=== PATIENT | female | born 1965 | race Caucasian/White ===

== ENCOUNTER → 2017-03-16 | Outpatient (CLI) | payer BC ==
--- NOTE | 2017-03-19 10:29 | MM ---
Reason for exam: screening (asymptomatic). Last mammogram was performed 7 years and 9 months ago. History: Patient is postmenopausal. Physical Findings: A clinical breast exam by your physician is recommended on an annual basis and results should be correlated with mammographic findings. MG Screening Mammo w CAD Bilateral CC and MLO view(s) were taken. Prior study comparison: June 16, 2009, mammogram, performed at [facility]. June 01, 2009, mammogram, performed at [facility]. There are scattered fibroglandular densities. There is no discrete abnormality. No significant changes when compared with prior studies. ASSESSMENT: Negative, BI-RAD 1 RECOMMENDATION: Routine screening mammogram of both breasts in 1 year.
== END | disposition home or self-care (01) ==
LOC: RADMAMWWP 16:07
PROVIDERS: ATTEND Family Medicine
DX: Z12.31 Encounter for screening mammogram for malignant neoplasm of breast (principal)

== ENCOUNTER → 2018-04-01 | Outpatient (CLI) | payer BC ==
--- NOTE | 2018-04-03 10:25 | MM ---
Reason for exam: screening (asymptomatic). Last mammogram was performed 1 year and 1 month ago. History: Patient is postmenopausal. Physical Findings: A clinical breast exam by your physician is recommended on an annual basis and results should be correlated with mammographic findings. MG Screening Mammo w CAD Bilateral CC and MLO view(s) were taken. Prior study comparison: March 16, 2017, bilateral MG screening mammo w CAD. [place], [place] [facility] [place] are scattered fibroglandular densities. No significant changes when compared with prior studies. ASSESSMENT: Benign, BI-RAD 2 RECOMMENDATION: Routine screening mammogram of both breasts in 1 year.
== END | disposition home or self-care (01) ==
LOC: RADMAMWWP 14:33
PROVIDERS: ATTEND Family Medicine
DX: Z12.31 Encounter for screening mammogram for malignant neoplasm of breast (principal)
CPT/HCPCS: 77067

== ENCOUNTER → 2019-04-14 | Outpatient (CLI) | payer BC ==
--- NOTE | 2019-04-15 14:28 | MM ---
Reason for exam: screening (asymptomatic). Last mammogram was performed 1 year ago. History: Patient is postmenopausal. Physical Findings: A clinical breast exam by your physician is recommended on an annual basis and results should be correlated with mammographic findings. MG 3D Screening Mammo W/Cad Bilateral CC and MLO view(s) were taken. Prior study comparison: April 01, 2018, bilateral MG screening mammo w CAD. March 16, 2017, bilateral MG screening mammo w CAD. The breast tissue is almost entirely fat. No significant changes when compared with prior studies. ASSESSMENT: Benign, BI-RAD 2 RECOMMENDATION: Routine screening mammogram of both breasts in 1 year.
== END | disposition home or self-care (01) ==
LOC: RADMAMWWP 14:30
PROVIDERS: ATTEND Family Medicine
DX: Z12.31 Encounter for screening mammogram for malignant neoplasm of breast (principal)
CPT/HCPCS: 77063; 77067

== ENCOUNTER → 2021-05-30 | Outpatient (CLI) | payer BC ==
[2021-05-30 15:06] VITALS: BP 120/77; PULSE 66; RESP 18; TEMP 98.4; BMI 27.3
--- NOTE | 2021-05-30 16:08 | P.HPBAR ---
Bariatric H&P - History & Physicial H&P Date: 05/30/21 History & Physicial: Visit/CC: initial visit / lap band Patient initial contact: Initial weight: Initial weight in pounds: Height: 5 ft 5 in Initial BMI: Last weight: Current weight: 74.389 kg Current weight in pounds: 164.00 Current BMI: 27.3 [place] body weight (based on NIH guidelines): 56.699 kg Excess body weight loss: The patient is a 55 year-old F who presents for Bariatric Assessment. Patient presents today for elective just. She is had some issues with GERD. Past Medical History Past Medical History: Hyperlipidemia Additional Past Medical History / Comment(s): hypoglycemia episodes. History of Any Multi-Drug Resistant Organisms: None Reported Past Surgical History: Bariatric Surgery, Cholecystectomy, Orthopedic Surgery Additional Past Surgical History / Comment(s): lap band. carpal tunnel bilat hands. bilateral thumbs trigger release. Past Anesthesia/Blood Transfusion Reactions: No Reported Reaction Past Psychological History: Depression Smoking Status: Current every day smoker Past Alcohol Use History: None Reported Past Drug Use History: None Reported Surgical - Exam Vital Signs Temp Pulse Resp BP 98.4 F 66 18 120/77 05/30/21 14:58 05/30/21 14:58 05/30/21 14:58 05/30/21 14:58 - General well developed, well nourished, no distress - Eyes PERRL - ENT normal pinna - Neck no masses - Respiratory normal expansion - Cardiovascular Rhythm: regular - Abdomen Abdomen: soft, non tender Bariatric Assessment & Plan Plan: GERD. Patient LAP-BAND was just. She had 2 mL her for band. She currently is 0 mL in the band. She'll follow-up in 4 weeks. Bariatric Checklist Checklist: Plan: Checklist: EGD: 1. Hiatal hernia: 2. H. Pylori: HgbA1c: Vitamin D: Smoking: Primary care physician referral: Dr. Neal Rollins ([facility]) Psychiatry clearance: Cardiology clearance: Sleep study: Diet journal: VTE risk score: VTE risk level: Rehab needs at discharge:
== END ==
LOC: BARWHC3 14:01
PROVIDERS: ATTEND Surgery
DX: Z09 Encounter for follow-up examination after completed treatment for conditions other than malignant neoplasm (principal); K21.9 Gastro-esophageal reflux disease without esophagitis; Z98.84 Bariatric surgery status; F32.9 Major depressive disorder, single episode, unspecified; F17.200 Nicotine dependence, unspecified, uncomplicated; Z88.5 Allergy status to narcotic agent
CPT/HCPCS: 99202

== ENCOUNTER 2021-06-23 04:06 | Emergency (ER) | payer BC ==
[2021-06-23 04:11] VITALS: BP 124/63; PULSE 60; RESP 20; TEMP 98.4
[2021-06-23] MEDS ORDERED: DEXAMETHASONE SOD PHOSPHATE 10 MG/ML 1 ML VIAL IM STA (04:26)
[2021-06-23] MEDS ORDERED: HYDROCORTISONE 1% CREAM 30 GM TUBE TOPICAL STA (04:26)
[2021-06-23] MEDS ORDERED: hydrOXYzine HCL 25 MG TAB PO STA (04:26)
--- NOTE | 2021-06-23 04:26 | ED ---
Allergic Reaction HPI - General Chief complaint: Allergic Reaction Stated complaint: Bee Sting Time Seen by Provider: 06/23/21 04:18 Source: patient, RN notes reviewed, old records reviewed Mode of arrival: ambulatory Limitations: no limitations - History of Present Illness Initial Comments: This is a 55-year-old female today for evaluation. Patient does have bee sting which she did witness of right upper extremity. Significant swelling and surrounding erythema has increased as tenderness. Patient states is significantly itchy, but just admits to 1 bee sting. No shortness of breath no feelings of her throat closing no wheezing. No signs of syncope or near syncope. Patient otherwise has no complaints MD Complaint: allergic reaction, other (Bee sting) -: hour(s) Exposure: insect bite Symptoms: itching Severity: moderate Treatment Prior to Arrival: epinephrine Previous Allergy History: none - Related Data Home Medications Medication Instructions Recorded Confirmed Ergocalciferol [Vitamin D2 (1250 1,250 mcg PO WEEKLY 05/30/21 07/04/21 Mcg = 97157 Iu)] Omeprazole [PriLOSEC] 20 mg PO DIRECTED 05/30/21 07/04/21 Rosuvastatin [Crestor] 20 mg PO DAILY 05/30/21 07/04/21 Venlafaxine HCl [Effexor] 20 mg PO DAILY 05/30/21 07/04/21 Previous Rx's Medication Instructions Recorded Famotidine [Pepcid] 40 mg PO BID #28 tablet 06/23/21 hydrOXYzine HCL [Atarax] 25 mg PO TID PRN #15 tab 06/23/21 Allergies Allergy/AdvReac Type Severity Reaction Status Date / Time codeine Allergy Rash/Hives Verified 07/04/21 13:25 Review of Systems ROS Statement: Those systems with pertinent positive or pertinent negative responses have been documented in the HPI. ROS Other: All systems not noted in ROS Statement are negative. Past Medical History Past Medical History: GERD/Reflux, Hyperlipidemia Additional Past Medical History / Comment(s): hypoglycemia episodes. depression History of Any Multi-Drug Resistant Organisms: None Reported Past Surgical History: Bariatric Surgery, Cholecystectomy, Orthopedic Surgery Additional Past Surgical History / Comment(s): lap band. carpal tunnel bilat hands. bilateral thumbs trigger release. Past Anesthesia/Blood Transfusion Reactions: No Reported Reaction Past Psychological History: Depression Smoking Status: Current every day smoker Past Alcohol Use History: Occasional Past Drug Use History: None Reported General Exam - General Exam Comments Initial Comments: Right upper extremity does have bee sting no stinger Limitations: no limitations General appearance: alert, in no apparent distress Head exam: Present: atraumatic, normocephalic, normal inspection Eye exam: Present: normal appearance, PERRL, EOMI. Absent: scleral icterus, conjunctival injection, periorbital swelling ENT exam: Present: normal exam, mucous membranes moist Neck exam: Present: normal inspection. Absent: tenderness, meningismus, lymphadenopathy Respiratory exam: Present: normal lung sounds bilaterally. Absent: respiratory distress, wheezes, rales, rhonchi, stridor Cardiovascular Exam: Present: regular rate, normal rhythm, normal heart sounds. Absent: systolic murmur, diastolic murmur, rubs, gallop, clicks GI/Abdominal exam: Present: soft, normal bowel sounds. Absent: distended, tenderness, guarding, rebound, rigid Extremities exam: Present: normal inspection, full ROM, normal capillary refill. Absent: tenderness, pedal edema, joint swelling, calf tenderness Back exam: Present: normal inspection Neurological exam: Present: alert, oriented X3, CN II-XII intact Psychiatric exam: Present: normal affect, normal mood Skin exam: Present: warm, dry, intact, normal color. Absent: rash Course Vital Signs 06/23/21 04:06 Temperature 98.4 F Pulse Rate 60 Respiratory 20 Rate Blood Pressure 124/63 O2 Sat by Pulse 99 Oximetry - Reevaluation(s) Reevaluation #1: 06/23/21 Medical record is reviewed Symptoms are improved here in the emergency department Patient informed results and questions have been answered Patient is in no distress Medical Decision Making - Medical Decision Making 55 female to the ER today with right arm bee sting. Patient given and itching medication. Patient can be discharged home Disposition Clinical Impression: Allergic reaction, Allergic reaction to insect sting Disposition: HOME SELF-CARE Condition: Good Instructions (If sedation given, give patient instructions): Insect Bite or Sting (ED) Prescriptions: hydrOXYzine HCL [Atarax] 25 mg PO TID PRN #15 tab PRN Reason: Itching Famotidine [Pepcid] 40 mg PO BID #28 tablet Is patient prescribed a controlled substance at d/c from ED?: No Referrals: Stas Rollins MD [REFERRING] - 1-2 days
== END 2021-06-23 04:53 | disposition home or self-care (01) ==
LOC: EC 04:06
DX: T63.441A Toxic effect of venom of bees, accidental (unintentional), initial encounter (principal); E78.5 Hyperlipidemia, unspecified; K21.9 Gastro-esophageal reflux disease without esophagitis; F32.9 Major depressive disorder, single episode, unspecified; F17.200 Nicotine dependence, unspecified, uncomplicated; Z79.899 Other long term (current) drug therapy
CPT/HCPCS: 96372; 99282; J1100

== ENCOUNTER → 2021-07-04 | Outpatient (CLI) | payer BC ==
[2021-07-04 13:30] VITALS: BP 102/69; PULSE 64; RESP 18; TEMP 98.1; BMI 28.5
--- NOTE | 2021-07-04 14:00 | P.HPBAR ---
Bariatric H&P - History & Physicial H&P Date: 07/04/21 History & Physicial: Visit/CC: follow up / lap band Patient initial contact: Initial weight: Initial weight in pounds: Height: 5 ft 5 in Initial BMI: Last weight: Current weight: 77.973 kg Current weight in pounds: 171.90 Current BMI: 28.5 [place] body weight (based on NIH guidelines): 56.699 kg Excess body weight loss: The patient is a 55 year-old F who presents for Bariatric Assessment. Patient presents today for bariatric follow-up. She is requesting a fill of her band. Past Medical History Past Medical History: GERD/Reflux, Hyperlipidemia Additional Past Medical History / Comment(s): hypoglycemia episodes. depression History of Any Multi-Drug Resistant Organisms: None Reported Past Surgical History: Bariatric Surgery, Cholecystectomy, Orthopedic Surgery Additional Past Surgical History / Comment(s): lap band. carpal tunnel bilat hands. bilateral thumbs trigger release. Past Anesthesia/Blood Transfusion Reactions: No Reported Reaction Smoking Status: Current every day smoker Surgical - Exam Vital Signs Temp Pulse Resp BP 98.1 F 64 18 102/69 07/04/21 13:28 07/04/21 13:28 07/04/21 13:28 07/04/21 13:28 - General well developed, well nourished, no distress - Eyes PERRL - ENT normal pinna - Neck no masses - Respiratory normal expansion - Cardiovascular Rhythm: regular - Abdomen Abdomen: soft, non tender Bariatric Assessment & Plan Plan: Patient LAP-BAND was just. She had a 5 mL added to her band. She'll follow-up in 4 weeks. Bariatric Checklist Checklist: Plan: Checklist: EGD: 1. Hiatal hernia: 2. H. Pylori: HgbA1c: Vitamin D: Smoking: Primary care physician referral: Dr. Neal Rollins ([facility]) Psychiatry clearance: Cardiology clearance: Sleep study: Diet journal: VTE risk score: VTE risk level: Rehab needs at discharge:
== END ==
LOC: BARWHC3 13:13
PROVIDERS: ATTEND Surgery
DX: E66.01 Morbid (severe) obesity due to excess calories (principal); K21.9 Gastro-esophageal reflux disease without esophagitis; Z46.51 Encounter for fitting and adjustment of gastric lap band; E78.5 Hyperlipidemia, unspecified; F32.9 Major depressive disorder, single episode, unspecified; F17.200 Nicotine dependence, unspecified, uncomplicated; Z88.5 Allergy status to narcotic agent
CPT/HCPCS: 99212

== ENCOUNTER → 2021-08-08 | Outpatient (CLI) | payer BC ==
[2021-08-08 13:43] VITALS: BP 131/79; PULSE 72; RESP 18; TEMP 98.2; BMI 30.2
--- NOTE | 2021-08-08 13:58 | P.HPBAR ---
Bariatric H&P - History & Physicial H&P Date: 08/08/21 History & Physicial: Visit/CC: follow up / lap band Patient initial contact: Initial weight: Initial weight in pounds: Height: 5 ft 5 in Initial BMI: Last weight: Current weight: 82.554 kg Current weight in pounds: 182.00 Current BMI: 30.2 [place] body weight (based on NIH guidelines): 56.699 kg Excess body weight loss: The patient is a 55 year-old F who presents for Bariatric Assessment. Patient presents today for bariatric follow-up. She presents for a fill of her band. Past Medical History Past Medical History: GERD/Reflux, Hyperlipidemia Additional Past Medical History / Comment(s): hypoglycemia episodes. depression History of Any Multi-Drug Resistant Organisms: None Reported Past Surgical History: Bariatric Surgery, Cholecystectomy, Orthopedic Surgery Additional Past Surgical History / Comment(s): lap band. carpal tunnel bilat hands. bilateral thumbs trigger release. Past Anesthesia/Blood Transfusion Reactions: No Reported Reaction Past Psychological History: Depression Smoking Status: Current every day smoker Past Alcohol Use History: Occasional Past Drug Use History: None Reported Surgical - Exam Vital Signs Temp Pulse Resp BP 98.2 F 72 18 131/79 08/08/21 13:38 08/08/21 13:38 08/08/21 13:38 08/08/21 13:38 - General well developed, well nourished, no distress - Eyes PERRL - ENT normal pinna - Neck no masses - Respiratory normal expansion - Cardiovascular Rhythm: regular - Abdomen Abdomen: soft, non tender Bariatric Assessment & Plan Plan: Patient's lap band adjustment. She'll 0.5 mL added to the band. She currently has 2 mL in the band. She will follow-up in 4 weeks. Bariatric Checklist Checklist: Plan: Checklist: EGD: 1. Hiatal hernia: 2. H. Pylori: HgbA1c: Vitamin D: Smoking: Primary care physician referral: Dr. Neal Rollins ([facility]) Psychiatry clearance: Cardiology clearance: Sleep study: Diet journal: VTE risk score: VTE risk level: Rehab needs at discharge:
== END ==
LOC: BARWHC3 13:14
PROVIDERS: ATTEND Surgery
DX: Z46.51 Encounter for fitting and adjustment of gastric lap band (principal); E78.5 Hyperlipidemia, unspecified; F32.9 Major depressive disorder, single episode, unspecified; F17.200 Nicotine dependence, unspecified, uncomplicated; Z88.5 Allergy status to narcotic agent
CPT/HCPCS: 99212

== ENCOUNTER → 2022-03-13 | Outpatient (CLI) | payer BC ==
[2022-03-13 13:10] VITALS: BP 121/79; PULSE 64; TEMP 98.3; BMI 30.9
--- NOTE | 2022-03-13 13:40 | P.HPBAR ---
Bariatric H&P - History & Physicial H&P Date: 03/13/22 History & Physicial: Visit/CC: lap band f/u Patient initial contact: Initial weight: Initial weight in pounds: Height: 5 ft 5 in Initial BMI: Last weight: Current weight: 84.368 kg Current weight in pounds: 186.00 Current BMI: 30.9 [place] body weight (based on NIH guidelines): 56.699 kg Excess body weight loss: The patient is a 56 year-old F who presents for Bariatric Assessment.patient presents today for LAP-BAND adjustment. She's had some trouble dysphagia. Past Medical History Past Medical History: GERD/Reflux, Hyperlipidemia Additional Past Medical History / Comment(s): hypoglycemia episodes. depression History of Any Multi-Drug Resistant Organisms: None Reported Past Surgical History: Bariatric Surgery, Cholecystectomy, Orthopedic Surgery Additional Past Surgical History / Comment(s): lap band. carpal tunnel bilat hands. bilateral thumbs trigger release. Past Anesthesia/Blood Transfusion Reactions: No Reported Reaction Past Psychological History: Depression Smoking Status: Current every day smoker Past Alcohol Use History: Occasional Past Drug Use History: None Reported Surgical - Exam Vital Signs Temp Pulse BP 98.3 F 64 121/79 03/13/22 13:07 03/13/22 13:07 03/13/22 13:07 - General well developed, well nourished, no distress - Eyes PERRL - ENT normal pinna - Neck no masses - Respiratory normal expansion - Cardiovascular Rhythm: regular - Abdomen Abdomen: soft, non tender Bariatric Assessment & Plan Plan: patient's LAP-BAND was adjusted. She had 1.2 mL removed from the band. She currently is 1.2 mL remaining. She will follow-up in 2 weeks. Bariatric Checklist Checklist: Plan: Checklist: EGD: 1. Hiatal hernia: 2. H. Pylori: HgbA1c: Vitamin D: Smoking: Primary care physician referral: Dr. Neal Rollins ([facility]) Psychiatry clearance: Cardiology clearance: Sleep study: Diet journal: VTE risk score: VTE risk level: Rehab needs at discharge:
== END ==
LOC: BARWHC3 12:56
PROVIDERS: ATTEND Surgery
DX: Z46.51 Encounter for fitting and adjustment of gastric lap band (principal); E78.5 Hyperlipidemia, unspecified; F32.A Depression, unspecified; F17.200 Nicotine dependence, unspecified, uncomplicated; Z88.5 Allergy status to narcotic agent
CPT/HCPCS: 99212

== ENCOUNTER → 2022-03-27 | Outpatient (CLI) | payer BC ==
[2022-03-27 13:15] VITALS: BP 122/82; PULSE 72; RESP 12; TEMP 98.2; BMI 31.2
--- NOTE | 2022-03-27 14:50 | P.HPBAR ---
Bariatric H&P - History & Physicial H&P Date: 03/27/22 History & Physicial: Visit/CC: lapband adjustment Patient initial contact: Initial weight: Initial weight in pounds: Height: 5 ft 5 in Initial BMI: Last weight: Current weight: 85.275 kg Current weight in pounds: 188.00 Current BMI: 31.2 [place] body weight (based on NIH guidelines): 56.699 kg Excess body weight loss: The patient is a 56 year-old F who presents for Bariatric Assessment. Patient presents today for LAP-BAND adjustment. She is currently hungry and is requesting a fill. Past Medical History Past Medical History: GERD/Reflux, Hyperlipidemia Additional Past Medical History / Comment(s): hypoglycemia episodes. depression History of Any Multi-Drug Resistant Organisms: None Reported Past Surgical History: Bariatric Surgery, Cholecystectomy, Orthopedic Surgery Additional Past Surgical History / Comment(s): lap band. carpal tunnel bilat hands. bilateral thumbs trigger release. Past Anesthesia/Blood Transfusion Reactions: No Reported Reaction Smoking Status: Current every day smoker Surgical - Exam Vital Signs Temp Pulse Resp BP 98.2 F 72 12 122/82 03/27/22 13:11 03/27/22 13:11 03/27/22 13:11 03/27/22 13:11 - General well developed, well nourished, no distress - Eyes PERRL - ENT normal pinna - Neck no masses - Respiratory normal expansion - Cardiovascular Rhythm: regular - Abdomen Abdomen: soft, non tender Bariatric Assessment & Plan Plan: Patient's LAP-BAND was adjusted. She had 0.8 mL added to the band. She currently has 2 mL in the band. She'll follow-up in one month Bariatric Checklist Checklist: Plan: Checklist: EGD: 1. Hiatal hernia: 2. H. Pylori: HgbA1c: Vitamin D: Smoking: Primary care physician referral: Dr. Neal Rollins ([facility]) Psychiatry clearance: Cardiology clearance: Sleep study: Diet journal: VTE risk score: VTE risk level: Rehab needs at discharge:
== END ==
LOC: BARWHC3 12:45
PROVIDERS: ATTEND Surgery
DX: Z46.51 Encounter for fitting and adjustment of gastric lap band (principal); E78.5 Hyperlipidemia, unspecified; F32.A Depression, unspecified; F17.200 Nicotine dependence, unspecified, uncomplicated; Z88.5 Allergy status to narcotic agent
CPT/HCPCS: 99212

== ENCOUNTER → 2022-04-24 | Outpatient (CLI) | payer BC ==
[2022-04-24 13:35] VITALS: BP 107/70; PULSE 70; TEMP 98.1; BMI 31.2
--- NOTE | 2022-04-24 13:45 | P.HPBAR ---
Bariatric H&P - History & Physicial H&P Date: 04/24/22 History & Physicial: Visit/CC: lap band Patient initial contact: Initial weight: Initial weight in pounds: Height: 5 ft 5 in Initial BMI: Last weight: Current weight: 85.275 kg Current weight in pounds: 188.00 Current BMI: 31.2 [place] body weight (based on NIH guidelines): 56.699 kg Excess body weight loss: The patient is a 56 year-old F who presents for Bariatric Assessment. Patient resents today for LAP-BAND follow-up. She feels well. Her weight is stable. He currently is 186 pounds. It was 166 pounds her last visit. She's had some minimal GERD. Past Medical History Past Medical History: GERD/Reflux, Hyperlipidemia Additional Past Medical History / Comment(s): hypoglycemia episodes. depression History of Any Multi-Drug Resistant Organisms: None Reported Past Surgical History: Bariatric Surgery, Cholecystectomy, Orthopedic Surgery Additional Past Surgical History / Comment(s): lap band. carpal tunnel bilat hands. bilateral thumbs trigger release. Past Anesthesia/Blood Transfusion Reactions: No Reported Reaction Past Psychological History: Depression Smoking Status: Current every day smoker Past Alcohol Use History: Occasional Past Drug Use History: None Reported Surgical - Exam Vital Signs Temp Pulse BP 98.1 F 70 107/70 04/24/22 13:32 04/24/22 13:32 04/24/22 13:32 - General well developed, well nourished, no distress - Eyes PERRL - ENT normal pinna - Neck no masses - Respiratory normal expansion - Cardiovascular Rhythm: regular Bariatric Assessment & Plan Plan: Patient's doing well. Her GERD is minimal and will be observed. She'll follow- up in 4 weeks. Bariatric Checklist Checklist: Plan: Checklist: EGD: 1. Hiatal hernia: 2. H. Pylori: HgbA1c: Vitamin D: Smoking: Primary care physician referral: Dr. Neal Rollins ([facility]) Psychiatry clearance: Cardiology clearance: Sleep study: Diet journal: VTE risk score: VTE risk level: Rehab needs at discharge:
== END ==
LOC: BARWHC3 13:05
PROVIDERS: ATTEND Surgery
DX: Z09 Encounter for follow-up examination after completed treatment for conditions other than malignant neoplasm (principal); K21.9 Gastro-esophageal reflux disease without esophagitis; E78.5 Hyperlipidemia, unspecified; F32.A Depression, unspecified; Z98.84 Bariatric surgery status; F17.200 Nicotine dependence, unspecified, uncomplicated
CPT/HCPCS: 99212

== ENCOUNTER → 2022-06-05 | Outpatient (CLI) | payer BC ==
--- NOTE | 2022-06-06 08:48 | MM ---
Reason for Exam: Screening (asymptomatic). Last mammogram was performed 3 year(s) and 1 month(s) ago. Patient History: Menarche at age 9. Postmenopausal. Risk Values: [place] 5 year model risk: 1.0%. NCI Lifetime model risk: 6.3%. Prior Study Comparison: 03/16/2017 Bilateral Screening Mammogram, [facility]. 04/01/2018 Bilateral Screening Mammogram, [facility]. 04/14/2019 Bilateral Screening Mammogram, [facility]. Tissue Density: The breast tissue is almost entirely fat. Findings: Analyzed By CAD. There is no suspicious group of microcalcifications or new suspicious mass in either breast. No significant change from prior examination. Overall Assessment: Benign, BI-RAD 2 Management: Screening Mammogram of both breasts in 1 year. A clinical breast exam by your physician is recommended on an annual basis and results should be correlated with mammographic findings. Electronically signed and approved by: Deep Light D.O.
== END | disposition home or self-care (01) ==
LOC: RADMAMWWP 16:10
PROVIDERS: ATTEND Family Medicine
DX: Z12.31 Encounter for screening mammogram for malignant neoplasm of breast (principal); Z78.0 Asymptomatic menopausal state
CPT/HCPCS: 77067

== ENCOUNTER → 2022-07-10 | Outpatient (CLI) | payer BC ==
[2022-07-11 10:33] VITALS: BP 128/85; PULSE 70; TEMP 97; BMI 31.6
--- NOTE | 2022-07-24 15:12 | P.HPBAR ---
Bariatric H&P - History & Physicial H&P Date: 07/10/22 History & Physicial: Visit/CC: lap band follow up Patient initial contact: Initial weight: Initial weight in pounds: Height: 5 ft 5 in Initial BMI: Last weight: Current weight: 86.183 kg Current weight in pounds: 190.00 Current BMI: 31.6 [place] body weight (based on NIH guidelines): 56.699 kg Excess body weight loss: The patient is a 56 year-old F who presents for Bariatric Assessment. Patient resents today for LAP-BAND follow-up. She's requesting a fill her band. She currently feels hungry. She currently weighs 190 pounds. She was previously 188 pounds. Past Medical History Past Medical History: GERD/Reflux, Hyperlipidemia Additional Past Medical History / Comment(s): hypoglycemia episodes. depression History of Any Multi-Drug Resistant Organisms: None Reported Past Surgical History: Bariatric Surgery, Cholecystectomy, Orthopedic Surgery Additional Past Surgical History / Comment(s): lap band. carpal tunnel bilat hands. bilateral thumbs trigger release. Past Anesthesia/Blood Transfusion Reactions: No Reported Reaction Past Psychological History: Depression Smoking Status: Current every day smoker Past Alcohol Use History: Occasional Past Drug Use History: None Reported Surgical - Exam Vital Signs Temp Pulse BP 97 F L 70 128/85 07/10/22 14:00 07/10/22 14:00 07/10/22 14:00 - General well developed, well nourished, no distress - Eyes PERRL - ENT normal pinna - Neck no masses - Respiratory normal expansion - Cardiovascular Rhythm: regular - Abdomen Abdomen: soft, non tender Bariatric Assessment & Plan Plan: Patient LAP-BAND was adjusted. She had 0.5 mL added the band. She currently is 2.5 mL in the band. She'll follow-up in 4 weeks. Bariatric Checklist Checklist: Plan: Checklist: EGD: 1. Hiatal hernia: 2. H. Pylori: HgbA1c: Vitamin D: Smoking: Primary care physician referral: Dr. Neal Rollins ([facility]) Psychiatry clearance: Cardiology clearance: Sleep study: Diet journal: VTE risk score: VTE risk level: Rehab needs at discharge:
== END ==
LOC: BARWHC3 13:13
PROVIDERS: ATTEND Surgery
DX: Z46.51 Encounter for fitting and adjustment of gastric lap band (principal); E78.5 Hyperlipidemia, unspecified; F32.A Depression, unspecified; F17.200 Nicotine dependence, unspecified, uncomplicated; Z88.5 Allergy status to narcotic agent
CPT/HCPCS: 99212

== ENCOUNTER → 2023-05-17 | Outpatient (CLI) | payer BC ==
--- NOTE | 2023-05-18 13:41 | MR ---
EXAMINATION TYPE: MR lumbar spine wo con DATE OF EXAM: 05/17/2023 5:36 PM COMPARISON: 03/31/2022. CLINICAL INDICATION: Female, 57 years old with history of M51.36 R53.1 M54.16; Low back pain, radicul opathy TECHNIQUE: Multi planar, multi sequence imaging was performed utilizing: T1-weighted, T2-weighted, a nd turbo inversion recovery imaging of the lumbar spine. IV Contrast: None. FINDINGS: Alignment: The lumbar vertebral bodies have preserved heights and alignment. Cord: The conus medullaris and the distal spinal cord appear unremarkable with regards to their signa l intensity and morphology. Bones/Discs: Multilevel disc degeneration changes with Modic endplate changes. Retrolisthesis of T12 on L1. Scattered osteophyte formation disc desiccation and disc space narrowing is present. Facet demetria nt arthropathy seen throughout the spine. T12-L1: No evidence of significant spinal canal stenosis or neural foraminal stenosis. L1-L2: No evidence of significant spinal canal stenosis or neural foraminal stenosis. Trace bilateral facet joint effusions. L2-L3: No evidence of significant spinal canal stenosis or neural foraminal stenosis. Trace right facet joint effusion. L3-L4: No evidence of significant spinal canal stenosis or neural foraminal stenosis. L4-L5: No evidence of significant spinal canal stenosis or neural foraminal stenosis. L5-S1: The disc is rounded posterior morphology without significant spinal canal stenosis. Facet join t arthropathy with mild neural foraminal stenosis. No significant spinal canal or neural foraminal stenosis in the remainder of the visualized levels. Other findings: None. IMPRESSION: 1. No definitive evidence of disc herniation or significant spinal canal stenosis. 2. Mild disc degeneration with associated osteoarthritic changes no evidence for significant neural foraminal stenosis.
== END | disposition home or self-care (01) ==
LOC: RADMRIMAIN 16:13
PROVIDERS: ATTEND Family Medicine
DX: M51.16 Intervertebral disc disorders with radiculopathy, lumbar region (principal); M47.26 Other spondylosis with radiculopathy, lumbar region; R53.1 Weakness
CPT/HCPCS: 72148

== ENCOUNTER → 2024-10-06 | Outpatient (CLI) | payer BC ==
[2024-10-06 10:36] VITALS: BP 124/82; PULSE 74; RESP 16; TEMP 97.9; BMI 28.9
--- NOTE | 2024-10-06 12:39 | P.HPBAR ---
Bariatric H&P - History & Physicial H&P Date: 10/06/24 History & Physicial: Visit/CC: f/u lap band Patient initial contact: Initial weight: Initial weight in pounds: Height: 5 ft 5 in Initial BMI: Last weight: Current weight: 78.925 kg Current weight in pounds: 174.00 Current BMI: 28.9 [place] body weight (based on NIH guidelines): 56.699 kg Excess body weight loss: The patient is a 59 year-old F who presents for Bariatric Assessment. Patient requesting an adjustment of her band. Past Medical History Past Medical History: GERD/Reflux, Hyperlipidemia Additional Past Medical History / Comment(s): hypoglycemia episodes. depression, Chronic back pain History of Any Multi-Drug Resistant Organisms: None Reported Past Surgical History: Bariatric Surgery, Cholecystectomy, Orthopedic Surgery Additional Past Surgical History / Comment(s): lap band. carpal tunnel bilat hands. bilateral thumbs trigger release, Pain clinic procedures-[facility] Past Anesthesia/Blood Transfusion Reactions: No Reported Reaction Past Psychological History: Depression Smoking Status: Current every day smoker Past Alcohol Use History: Occasional Past Drug Use History: None Reported Surgical - Exam Vital Signs Temp Pulse Resp BP 97.9 F 74 16 124/82 10/06/24 10:25 10/06/24 10:25 10/06/24 10:25 10/06/24 10:25 - General well developed, well nourished, no distress - Eyes PERRL - ENT normal pinna - Neck no masses - Respiratory normal expansion - Cardiovascular Rhythm: regular - Abdomen Abdomen: soft, non tender Bariatric Assessment & Plan Plan: Patient Lap-Band was adjusted. Initially the patient had 0.3 cc after the band. This was too tight. Eventually 1 cc of the band was removed. She currently is 1.8 in the band. Bariatric Checklist Checklist: Plan: Checklist: EGD: 1. Hiatal hernia: 2. H. Pylori: HgbA1c: Vitamin D: Smoking: Primary care physician referral: Dr. Neal Rollins ([facility]) Psychiatry clearance: Cardiology clearance: Sleep study: Diet journal: VTE risk score: VTE risk level: Rehab needs at discharge:
== END ==
LOC: BARWHC3 10:18
PROVIDERS: ATTEND Surgery
DX: Z46.51 Encounter for fitting and adjustment of gastric lap band (principal); F17.200 Nicotine dependence, unspecified, uncomplicated; Z98.84 Bariatric surgery status; Z88.5 Allergy status to narcotic agent
CPT/HCPCS: 43999; 99211

== ENCOUNTER → 2024-10-08 | Outpatient (CLI) | payer BC ==
--- NOTE | 2024-10-08 11:48 | MM ---
Reason for Exam: Screening (asymptomatic). Last mammogram was performed 1 year(s) and 2 month(s) ago. Patient History: Menarche at age 9. Patient has no children. Postmenopausal. Risk Values: Jazzmine 5 year model risk: 1.8%. NCI Lifetime model risk: 8.9%. Prior Study Comparison: 03/16/2017 Bilateral Screening Mammogram, [facility]. 04/01/2018 Bilateral Screening Mammogram, [facility]. 04/14/2019 Bilateral Screening Mammogram, [facility]. 06/05/2022 Bilateral MG screening mammo w CAD, [facility]. 08/10/2023 Bilateral MG 3D screening mammo w/cad, [facility]. Tissue Density: There are scattered areas of fibroglandular density. Findings: Analyzed By CAD. There is no suspicious group of microcalcifications or new suspicious mass in either breast.Stable chronic nodularity. Asymmetric breast tissue right breast is stable dating back to numerous prior exams. Overall Assessment: Benign, BI-RAD 2 Management: Screening Mammogram of both breasts in 1 year. . Patient should continue monthly self-breast exams. A clinical breast exam by your physician is recommended on an annual basis. This exam should not preclude additional follow-up of suspicious palpable abnormalities. Note on Jazzmine scores and lifetime risk: 1. A Jazzmine score greater than 3% is considered moderate risk. If this is the case, consider specialist referral to assess eligibility for a risk reducing agent. 2. If overall lifetime risk for the development of breast cancer is 20% or higher, the patient may qualify for future screening with alternating mammogram and breast MRI. [facility], , 10/08/2024 11:45 AM. Electronically signed and approved by: Dick Parra M.D. Radiologis
== END | disposition home or self-care (01) ==
LOC: RADMAMWWP 08:59
PROVIDERS: ATTEND Family Medicine
DX: Z12.31 Encounter for screening mammogram for malignant neoplasm of breast (principal); Z78.0 Asymptomatic menopausal state; R92.323 Mammographic fibroglandular density, bilateral breasts
CPT/HCPCS: 77063; 77067

== ENCOUNTER → 2024-10-27 | Outpatient (CLI) | payer BC ==
[2024-10-27 10:30] VITALS: BP 120/83; PULSE 73; RESP 16; TEMP 97.9; BMI 29.2
--- NOTE | 2024-10-27 14:29 | P.HPBAR ---
Bariatric H&P - History & Physicial H&P Date: 10/27/24 History & Physicial: Visit/CC: f/u lap band Patient initial contact: Initial weight: Initial weight in pounds: Height: 5 ft 5 in Initial BMI: Last weight: Current weight: 79.832 kg Current weight in pounds: 176.00 Current BMI: 29.2 [place] body weight (based on NIH guidelines): 56.699 kg Excess body weight loss: The patient is a 59 year-old F who presents for Bariatric Assessment. Patient is requesting a fill of her band. He is hungry. Past Medical History Past Medical History: GERD/Reflux, Hyperlipidemia Additional Past Medical History / Comment(s): hypoglycemia episodes. depression, Chronic back pain History of Any Multi-Drug Resistant Organisms: None Reported Past Surgical History: Bariatric Surgery, Cholecystectomy, Orthopedic Surgery Additional Past Surgical History / Comment(s): lap band. carpal tunnel bilat hands. bilateral thumbs trigger release, Pain clinic procedures-[facility] Past Anesthesia/Blood Transfusion Reactions: No Reported Reaction Past Psychological History: Depression Smoking Status: Current every day smoker Past Alcohol Use History: Occasional Past Drug Use History: None Reported - Past Family History Father Family Medical History: Hypertension Additional Family Medical History / Comment(s): Malignant Melonoma Mother Family Medical History: Coronary Artery Disease (CAD) Additional Family Medical History / Comment(s): 7 cardiac stents Surgical - Exam Vital Signs Temp Pulse Resp BP 97.9 F 73 16 120/83 10/27/24 10:22 10/27/24 10:22 10/27/24 10:22 10/27/24 10:22 - General well developed, well nourished, no distress - Eyes PERRL - ENT normal pinna - Neck no masses - Respiratory normal expansion - Cardiovascular Rhythm: regular - Abdomen Abdomen: soft, non tender Bariatric Assessment & Plan Plan: Patient's Lap-Band was adjusted. She had 0.5 cc after the band. She will follow-up in 4 weeks. Bariatric Checklist Checklist: Plan: Checklist: EGD: 1. Hiatal hernia: 2. H. Pylori: HgbA1c: Vitamin D: Smoking: Primary care physician referral: Dr. Neal Rollins ([facility]) Psychiatry clearance: Cardiology clearance: Sleep study: Diet journal: VTE risk score: VTE risk level: Rehab needs at discharge:
== END ==
LOC: BARWHC3 10:14
PROVIDERS: ATTEND Surgery
DX: Z46.51 Encounter for fitting and adjustment of gastric lap band (principal); F17.200 Nicotine dependence, unspecified, uncomplicated; Z98.84 Bariatric surgery status; Z88.5 Allergy status to narcotic agent; Z68.29 Body mass index [BMI] 29.0-29.9, adult
CPT/HCPCS: 43999

== ENCOUNTER → 2024-11-24 | Outpatient (CLI) | payer BC ==
[2024-11-24 10:39] VITALS: BP 143/87; PULSE 82; RESP 16; TEMP 97.1; BMI 29.3
--- NOTE | 2024-11-24 13:40 | P.HPBAR ---
Bariatric H&P - History & Physicial H&P Date: 11/24/24 History & Physicial: Visit/CC: f/u lap band Patient initial contact: Initial weight: Initial weight in pounds: Height: 5 ft 5 in Initial BMI: Last weight: Current weight: 80.087 kg Current weight in pounds: 176.56 Current BMI: 29.3 [place] body weight (based on NIH guidelines): 56.699 kg Excess body weight loss: The patient is a 59 year-old F who presents for Bariatric Assessment. Patient presents today for bariatric follow-up. She is requesting a fill of her band. Past Medical History Past Medical History: GERD/Reflux, Hyperlipidemia Additional Past Medical History / Comment(s): hypoglycemia episodes. depression, Chronic back pain History of Any Multi-Drug Resistant Organisms: None Reported Past Surgical History: Bariatric Surgery, Cholecystectomy, Orthopedic Surgery Additional Past Surgical History / Comment(s): lap band. carpal tunnel bilat hands. bilateral thumbs trigger release, Pain clinic procedures-[facility] Past Anesthesia/Blood Transfusion Reactions: No Reported Reaction Past Psychological History: Depression Smoking Status: Current every day smoker Past Alcohol Use History: Occasional Past Drug Use History: None Reported - Past Family History Father Family Medical History: Hypertension Additional Family Medical History / Comment(s): Malignant Melonoma Mother Family Medical History: Coronary Artery Disease (CAD) Additional Family Medical History / Comment(s): 7 cardiac stents Surgical - Exam Vital Signs Temp Pulse Resp BP 97.1 F L 82 16 143/87 11/24/24 10:23 11/24/24 10:23 11/24/24 10:23 11/24/24 10:23 - General well developed, well nourished, no distress - Eyes PERRL - ENT normal pinna - Neck no masses - Respiratory normal expansion - Cardiovascular Rhythm: regular - Abdomen Abdomen: soft, non tender Bariatric Assessment & Plan Plan: Morbid obesity. Patient's Lap-Band was adjusted. She had 0.3 cc after the band. She currently is 2.6 cc in the past. She will follow-up in 4 weeks. Bariatric Checklist Checklist: Plan: Checklist: EGD: 1. Hiatal hernia: 2. H. Pylori: HgbA1c: Vitamin D: Smoking: Primary care physician referral: Dr. Neal Rollins ([facility]) Psychiatry clearance: Cardiology clearance: Sleep study: Diet journal: VTE risk score: VTE risk level: Rehab needs at discharge:
== END ==
LOC: BARWHC3 10:19
PROVIDERS: ATTEND Surgery
DX: E66.01 Morbid (severe) obesity due to excess calories (principal); Z68.29 Body mass index [BMI] 29.0-29.9, adult; Z88.5 Allergy status to narcotic agent
CPT/HCPCS: 43999

== ENCOUNTER → 2024-12-15 | Outpatient (CLI) | payer BC ==
[2024-12-15 10:25] VITALS: BP 115/78; PULSE 66; RESP 16; TEMP 98.2; BMI 27.3
--- NOTE | 2024-12-15 18:11 | P.HPBAR ---
Bariatric H&P - History & Physicial H&P Date: 12/15/24 History & Physicial: Visit/CC: f/u lap band Patient initial contact: Initial weight: Initial weight in pounds: Height: 5 ft 5 in Initial BMI: Last weight: Current weight: 74.389 kg Current weight in pounds: 164.00 Current BMI: 27.3 [place] body weight (based on NIH guidelines): 56.699 kg Excess body weight loss: The patient is a 59 year-old F who presents for Bariatric Assessment. Patient has some complaints of mild dysphagia. She is requesting some fluid to be removed from her band. Past Medical History Past Medical History: GERD/Reflux, Hyperlipidemia Additional Past Medical History / Comment(s): hypoglycemia episodes. depression, Chronic back pain History of Any Multi-Drug Resistant Organisms: None Reported Past Surgical History: Bariatric Surgery, Cholecystectomy, Orthopedic Surgery Additional Past Surgical History / Comment(s): lap band. carpal tunnel bilat hands. bilateral thumbs trigger release, Pain clinic procedures-[facility] Past Anesthesia/Blood Transfusion Reactions: No Reported Reaction Past Psychological History: Depression Smoking Status: Current every day smoker Past Alcohol Use History: Occasional Past Drug Use History: None Reported - Past Family History Father Family Medical History: Hypertension Additional Family Medical History / Comment(s): Malignant Melonoma Mother Family Medical History: Coronary Artery Disease (CAD) Additional Family Medical History / Comment(s): 7 cardiac stents Surgical - Exam Vital Signs Temp Pulse Resp BP 98.2 F 66 16 115/78 12/15/24 10:18 12/15/24 10:18 12/15/24 10:18 12/15/24 10:18 - General well developed, well nourished, no distress - Eyes PERRL - ENT normal pinna - Neck no masses - Respiratory normal expansion - Cardiovascular Rhythm: regular - Abdomen Abdomen: soft, non tender Bariatric Assessment & Plan Plan: Patient Lap-Band adjusted. She had 0.5 cc removed with band. She will follow- up in 4 weeks. Bariatric Checklist Checklist: Plan: Checklist: EGD: 1. Hiatal hernia: 2. H. Pylori: HgbA1c: Vitamin D: Smoking: Primary care physician referral: [facility]. Neal Rollins ([facility]) Psychiatry clearance: Cardiology clearance: Sleep study: Diet journal: VTE risk score: VTE risk level: Rehab needs at discharge:
== END ==
LOC: BARWHC3 10:13
PROVIDERS: ATTEND Surgery
DX: K44.9 Diaphragmatic hernia without obstruction or gangrene (principal); B96.81 Helicobacter pylori [H. pylori] as the cause of diseases classified elsewhere; Z88.5 Allergy status to narcotic agent
CPT/HCPCS: 43999

== ENCOUNTER → 2025-03-23 | Outpatient (CLI) | payer BC ==
[2025-03-23 09:45] VITALS: BP 130/79; PULSE 80; RESP 16; TEMP 97.9; BMI 28.8
--- NOTE | 2025-03-31 16:43 | P.HPBAR ---
Bariatric H&P - History & Physicial H&P Date: 03/23/25 History & Physicial: Visit/CC: f/u lap band Patient initial contact: Initial weight: Initial weight in pounds: Height: 5 ft 5 in Initial BMI: Last weight: Current weight: 78.471 kg Current weight in pounds: 173.00 Current BMI: 28.8 [place] body weight (based on NIH guidelines): 56.81 kg Excess body weight loss: The patient is a 59 year-old F who presents for Bariatric Assessment. this is a 59-year-old female presents today for Lap-Band adjustment. She currently feels hungry. She has gained 9 pound since her last visit. Past Medical History Past Medical History: GERD/Reflux, Hyperlipidemia Additional Past Medical History / Comment(s): hypoglycemia episodes. depression, Chronic back pain, vertigo History of Any Multi-Drug Resistant Organisms: None Reported Past Surgical History: Bariatric Surgery, Cholecystectomy, Orthopedic Surgery Additional Past Surgical History / Comment(s): lap band. carpal tunnel bilat hands. bilateral thumbs trigger release, Pain clinic procedures-[facility] Past Anesthesia/Blood Transfusion Reactions: No Reported Reaction Smoking Status: Current every day smoker - Past Family History Father Family Medical History: Hypertension Additional Family Medical History / Comment(s): Malignant Melonoma Mother Family Medical History: Coronary Artery Disease (CAD) Additional Family Medical History / Comment(s): 7 cardiac stents Surgical - Exam Vital Signs Temp Pulse Resp BP 97.9 F 80 16 130/79 03/23/25 09:39 03/23/25 09:39 03/23/25 09:39 03/23/25 09:39 - General well developed, well nourished, no distress - Eyes PERRL - ENT normal pinna - Neck no masses - Respiratory normal expansion - Cardiovascular Rhythm: regular - Abdomen Abdomen: soft, non tender Bariatric Assessment & Plan Plan: Patient Lap-Band was adjusted. She has 0.5 cc out of the band. She currently has 2.5 cc in the band. Bariatric Checklist Checklist: Plan: Checklist: EGD: 1. Hiatal hernia: 2. H. Pylori: HgbA1c: Vitamin D: Smoking: Primary care physician referral: Dr. Neal Rollins ([facility]) Psychiatry clearance: Cardiology clearance: Sleep study: Diet journal: VTE risk score: VTE risk level: Rehab needs at discharge:
== END ==
LOC: BARWHC3 09:34
PROVIDERS: ATTEND Surgery
DX: E66.01 Morbid (severe) obesity due to excess calories (principal); Z68.28 Body mass index [BMI] 28.0-28.9, adult; F17.200 Nicotine dependence, unspecified, uncomplicated; Z88.5 Allergy status to narcotic agent
CPT/HCPCS: 43999

== ENCOUNTER 2025-04-26 19:48 | Emergency (ER) | payer BC ==
[2025-04-26 19:59] VITALS: RESP 16; TEMP 98.6
--- NOTE | 2025-04-26 20:36 | ED ---
Abdominal Pain HPI - General Source: patient, EMS, RN notes reviewed Mode of arrival: EMS Limitations: no limitations - History of Present Illness MD Complaint: abdominal pain Onset/Timin -: hour(s) Time: 18:30 Location: epigastric Radiation: none Migration to: no migration Severity scale (1-10): 5 Quality: fullness Consistency: constant Associated Symptoms: nausea, vomiting <Tay Moya - Last Filed: 04/26/25 23:05> <Bindu Paul - Last Filed: 04/27/25 00:57> - General Chief Complaint: Abdominal Pain Stated Complaint: Abdominal Pain Time Seen by Provider: 04/26/25 20:04 - History of Present Illness Initial Comments: This is a 59-year-old female with history including GERD and Lap-Band surgery presenting via EMS for sudden onset abdominal pain starting at 1830 today. Patient states constant pain started suddenly, waking her from her sleep described as "filling with air and squeezing". Patient endorses adjustment of Lap-Band several weeks ago. Endorses mostly epigastric pain with vomiting of bile. Patient also mentions clamminess and sweating. Patient states pain was 10/10 in ambulance before reducing (5/10) after receiving Tylenol and Zofran from EMS. Endorses resolution of nausea. Denies significant cardiac history. Endorses history of similar symptoms/abdominal pain in the past, the last occurring about 6 months ago. Denies fever, chills, dizziness, chest pain, dyspnea, hematemesis, diarrhea, hematochezia, melena, urinary symptoms. (Tay Moya) - Related Data Home Medications Medication Instructions Recorded Confirmed Rosuvastatin [Crestor] 20 mg PO HS 05/30/21 03/23/25 Venlafaxine HCl [Effexor] 20 mg PO HS 05/30/21 03/23/25 traMADol HCL 50 mg PO Q6H PRN 10/06/24 03/23/25 Cholecalciferol (Vitamin D3) 1 cap PO DAILY 03/23/25 03/23/25 [Vitamin D3 (125 MCG = 5,000 IU)] Previous Rx's Medication Instructions Recorded Ondansetron Odt [Zofran Odt] 4 mg PO Q8HR PRN #10 tab 04/26/25 Allergies Allergy/AdvReac Type Severity Reaction Status Date / Time codeine Allergy Rash/Hives Verified 03/23/25 09:40 Review of Systems ROS Other: All systems not noted in ROS Statement are negative. <NitaTya - Last Filed: 04/26/25 23:05> ROS Other: All systems not noted in ROS Statement are negative. <HumbertoIsairosemary - Last Filed: 04/27/25 00:57> ROS Statement: Those systems with pertinent positive or pertinent negative responses have been documented in the HPI. Past Medical History Past Medical History: GERD/Reflux, Hyperlipidemia Additional Past Medical History / Comment(s): hypoglycemia episodes. depression, Chronic back pain, vertigo History of Any Multi-Drug Resistant Organisms: None Reported Past Surgical History: Bariatric Surgery, Cholecystectomy, Orthopedic Surgery Additional Past Surgical History / Comment(s): lap band. carpal tunnel bilat hands. bilateral thumbs trigger release, Pain clinic procedures-[facility] Past Anesthesia/Blood Transfusion Reactions: No Reported Reaction Past Psychological History: Depression Smoking Status: Current every day smoker Past Alcohol Use History: Rare Past Drug Use History: None Reported - Past Family History Father Family Medical History: Hypertension Additional Family Medical History / Comment(s): Malignant Melonoma Mother Family Medical History: Coronary Artery Disease (CAD) Additional Family Medical History / Comment(s): 7 cardiac stents <Tay Moya - Last Filed: 04/26/25 23:05> General Exam Limitations: no limitations General appearance: alert, in no apparent distress Head exam: Present: atraumatic, normocephalic, normal inspection Eye exam: Present: normal appearance, PERRL, EOMI. Absent: scleral icterus, conjunctival injection, periorbital swelling ENT exam: Present: normal exam, mucous membranes moist Neck exam: Present: normal inspection. Absent: tenderness, meningismus, lymphadenopathy Respiratory exam: Present: normal lung sounds bilaterally. Absent: respiratory distress, wheezes, rales, rhonchi, stridor, accessory muscle use, decreased breath sounds, prolonged expiratory Cardiovascular Exam: Present: regular rate, normal rhythm, normal heart sounds. Absent: systolic murmur, diastolic murmur, rubs, gallop, clicks GI/Abdominal exam: Present: soft, tenderness (Positive epigastric and RLQ tenderness without guarding), normal bowel sounds. Absent: distended, guarding, rebound, rigid, mass, pulsatile mass, hernia Extremities exam: Present: normal inspection, full ROM, normal capillary refill. Absent: tenderness, pedal edema, joint swelling, calf tenderness Back exam: Present: normal inspection Neurological exam: Present: alert, oriented X3, CN II-XII intact Psychiatric exam: Present: normal affect, normal mood Skin exam: Present: warm, dry, intact, normal color. Absent: rash <Tay Moya - Last Filed: 04/26/25 23:05> Course Vital Signs 04/26/25 04/26/25 19:54 22:25 Temperature 98.6 F Pulse Rate 65 67 Respiratory 16 16 Rate Blood Pressure 90/57 90/50 O2 Sat by Pulse 93 L 97 Oximetry Medical Decision Making - Lab Data Result diagrams: 04/26/25 20:14 04/26/25 20:14 <Tay Moya - Last Filed: 04/26/25 23:05> - Lab Data Result diagrams: 04/26/25 20:14 04/26/25 20:14 <Bindu Paul - Last Filed: 04/27/25 00:57> - Medical Decision Making Was pt. sent in by a medical professional or institution (Dr. PA, MDS COORDINATOR, urgent care, hospital, or senior living...) When possible be specific @ -[No] Did you speak to anyone other than the patient for history (EMS, parent, family, police, friend...)? What history was obtained from this source @ -[No] Did you review nursing and triage notes (agree or disagree)? Why? @ -[I reviewed and agree with nursing and triage notes] Were old charts reviewed (outside hosp., previous admission, EMS record, old EKG, old radiological studies, urgent care reports/EKG's, senior living records)? Report findings @ -[No old charts were reviewed] Differential Diagnosis (chest pain, altered mental status, abdominal pain women, abdominal pain men, vaginal bleeding, weakness, fever, dyspnea, syncope, headache, dizziness, GI bleed, back pain, seizure, CVA, palpatations, mental health, musculoskeletal)? @ -Differential Abdominal Pain Women: Appendicitis, Cholecystitis, diverticulosis, ischemic bowel, pancreatitis, hepatitis, UTI, gastroenteritis, AAA, incarcerated hernia, bowel obstruction, constipation, inflammatory bowel, hepatitis, peptic ulcer disease, splenic infarction, perforated viscus, vulvitis, ovarian torsion, PID, kidney stone, placenta abruption, this is not meant to be an all-inclusive list EKG interpreted by me (3pts min.). @ -Sinus rhythm without ST deviation or T wave inversion. Q waves in inferior leads indicate possible old inferior MT. Ventricular rate 64 bpm, DENICE 149 ms, QRS 88 ms, QTc 420 ms. X-rays interpreted by me (1pt min.). @ -CXR shows no acute cardiopulmonary process. CT interpreted by me (1pt min.). @ - AP CT shows no evidence of acute abdominal process. Gastric lap band in a ppropriate position with normal appendix and no obstructive uropathy or renal calculi. Undiagnosed new problem with uncertain prognosis? U/S interpreted by me (1pt. min.). @ -[None done] What testing was considered but not performed or refused? (CT, X-rays, U/S, labs)? Why? @ -[None] What meds were considered but not given or refused? Why? @ -[None] Did you discuss the management of the patient with other professionals (professionals i.e. , PA, MDS COORDINATOR, lab, RT, psych nurse, social work case manager, legal executive, teacher, tactical/mobile watch officer, assistant case manager)? Give summary @ -[No] Was smoking cessation discussed for >3mins.? @ -[No] Was critical care preformed (if so, how long)? @ -[No] Were there social determinants of health that impacted care today? How? (Homelessness, low income, unemployed, alcoholism, drug addiction, transportation, low edu. Level, literacy, decrease access to med. care, fpc, r ehab)? @ -[No] Was there de-escalation of care discussed even if they declined (Discuss DNR or withdrawal of care, Hospice)? DNR status @ -[No] What co-morbidities impacted this encounter? (DM, HTN, Smoking, COPD, CAD, Cancer, CVA, ARF, Chemo, Hep., AIDS, mental health diagnosis, sleep apnea, morbid obesity)? @ -[None] Was patient admitted / discharged? Hospital course, mention meds given and rout e, prescriptions, significant lab abnormalities, going to OR and other pertinent info. @ -Patient provided IV normal saline, stating she is not in significant pain or nauseous upon initial evaluation. Lab work shows BUN 19, creatinine 1.17 and GFR 51. WBC 7.30 and AST 57. Initial troponin unremarkable and lipase 285. Contaminated UA shows moderate amount of blood and bacteria without WBC or leukocyte esterase. CXR shows no acute cardiopulmonary process. AP CT shows no evidence of acute abdominal process. Gastric lap band in appropriate position with normal appendix and no obstructive uropathy or renal calculi. Patient would like to stay for repeat troponin. After 1 L normal saline, blood pressure remains 90 SBP, provided second liter of normal saline. Patient states her systolic blood pressure is normally in the 90s, stating her PCP expresses no concern for this. Patient HPI and physical exam findings discussed with and care passed to Frank Paul PA-C Undiagnosed new problem with uncertain prognosis? @ -[No] Drug Therapy requiring intensive monitoring for toxicity (Heparin, Nitro, Insulin, Cardizem)? @ -[No] Were any procedures done? @ -[No] Diagnosis/symptom? @ -[default] Acute, or Chronic, or Acute on Chronic? @ -Acute Uncomplicated (without systemic symptoms) or Complicated (systemic symptoms)? @ -Complicated Side effects of treatment? @ -[No] Exacerbation, Progression, or Severe Exacerbation? @ -[No] Poses a threat to life or bodily function? How? (Chest pain, USA, MT, pneumonia, PE, COPD, DKA, ARF, appy, cholecystitis, CVA, Diverticulitis, Homicidal, Suicidal, threat to staff... and all critical care pts) @ -[No] (Tay Moya) - Lab Data Lab Results 04/26/25 04/26/25 04/26/25 Range/Units 20:14 20:14 20:14 WBC 7.30 (4.50-10.00) 10*3/uL RBC 4.72 (4.10-5.20) 10*6/uL Hgb 14.1 (12.0-15.0) g/dL Hct 41.5 (37.2-46.3) % MCV 87.9 (80.0-97.0) fL MCH 29.9 (27.0-32.0) pg MCHC 34.0 (32.0-37.0) g/dL Plt Count 172 (140-440) 10*3/uL MPV 9.7 (9.5-12.2) fL Immature Gran % (Auto) 0.3 % Neutrophils % 75.7 % Lymphocytes % 16.0 % Monocytes % 6.3 % Eosinophils % 1.4 % Basophils % 0.3 % Immature Gran # 0.02 (0.00-0.04) 10*3/uL Neutrophils # 5.53 (1.80-7.70) 10*3/uL Lymphocytes # 1.17 (0.90-5.00) 10*3/uL Monocytes # 0.46 (0.20-1.00) 10*3/uL Eosinophils # 0.10 (0.04-0.35) 10*3/uL Basophils # 0.02 (0.00-0.10) 10*3/uL PT 10.3 (10.0-12.5) sec INR 0.9 (<1.2) APTT 22.7 (22.0-30.0) sec Sodium 139 (137-145) mmol/L Potassium 4.0 (3.5-5.1) mmol/L Chloride 107 (98-107) mmol/L Carbon Dioxide 26 (22-30) mmol/L Anion Gap 6 mmol/L BUN 19 H (7-17) mg/dL Creatinine 1.17 H (0.52-1.04) mg/dL Est GFR (CKD-EPI)AfAm 59 (>60 ml/min/1.73 sqM) Est GFR (CKD-EPI)NonAf 51 (>60 ml/min/1.73 sqM) Glucose 100 H (74-99) mg/dL Plasma Lactic Acid David (0.7-2.0) mmol/L Calcium 9.0 (8.4-10.2) mg/dL Magnesium 2.1 (1.6-2.3) mg/dL Total Bilirubin 0.5 (0.2-1.3) mg/dL AST 57 H (14-36) U/L ALT 26 (4-34) U/L Alkaline Phosphatase 53 (38-126) U/L Troponin I (0.000-0.034) ng/mL Total Protein 6.0 L (6.3-8.2) g/dL Albumin 3.8 (3.5-5.0) g/dL Lipase 285 (23-300) U/L Urine Color Urine Appearance (Clear) Urine pH (5.0-8.0) Ur Specific [place] (1.001-1.035) Urine Protein (Negative) Urine Glucose (UA) (Negative) Urine Ketones (Negative) Urine Blood (Negative) Urine Nitrite (Negative) Urine Bilirubin (Negative) Urine Urobilinogen (<2.0) mg/dL Ur Leukocyte Esterase (Negative) Urine RBC (0-5) /hpf Urine WBC (0-5) /hpf Ur Squamous Epith Cells (0-4) /hpf Urine Bacteria (None) /hpf Hyaline Casts (0-2) /lpf Granular Casts (0) /lpf Urine Mucus (None) /hpf Urine Yeast (Budding) (None) /hpf 04/26/25 04/26/25 04/26/25 Range/Units 20:14 20:14 20:44 WBC (4.50-10.00) 10*3/uL RBC (4.10-5.20) 10*6/uL Hgb (12.0-15.0) g/dL Hct (37.2-46.3) % MCV (80.0-97.0) fL MCH (27.0-32.0) pg MCHC (32.0-37.0) g/dL Plt Count (140-440) 10*3/uL MPV (9.5-12.2) fL Immature Gran % (Auto) % Neutrophils % % Lymphocytes % % Monocytes % % Eosinophils % % Basophils % % Immature Gran # (0.00-0.04) 10*3/uL Neutrophils # (1.80-7.70) 10*3/uL Lymphocytes # (0.90-5.00) 10*3/uL Monocytes # (0.20-1.00) 10*3/uL Eosinophils # (0.04-0.35) 10*3/uL Basophils # (0.00-0.10) 10*3/uL PT (10.0-12.5) sec INR (<1.2) APTT (22.0-30.0) sec Sodium (137-145) mmol/L Potassium (3.5-5.1) mmol/L Chloride (98-107) mmol/L Carbon Dioxide (22-30) mmol/L Anion Gap mmol/L BUN (7-17) mg/dL Creatinine (0.52-1.04) mg/dL Est GFR (CKD-EPI)AfAm (>60 ml/min/1.73 sqM) Est GFR (CKD-EPI)NonAf (>60 ml/min/1.73 sqM) Glucose (74-99) mg/dL Plasma Lactic Acid David 0.6 L (0.7-2.0) mmol/L Calcium (8.4-10.2) mg/dL Magnesium (1.6-2.3) mg/dL Total Bilirubin (0.2-1.3) mg/dL AST (14-36) U/L ALT (4-34) U/L Alkaline Phosphatase (38-126) U/L Troponin I <0.012 (0.000-0.034) ng/mL Total Protein (6.3-8.2) g/dL Albumin (3.5-5.0) g/dL Lipase (23-300) U/L Urine Color Yellow Urine Appearance Cloudy H (Clear) Urine pH 5.5 (5.0-8.0) Ur Specific [place] 1.028 (1.001-1.035) Urine Protein Negative (Negative) Urine Glucose (UA) Negative (Negative) Urine Ketones Negative (Negative) Urine Blood Moderate H (Negative) Urine Nitrite Negative (Negative) Urine Bilirubin Negative (Negative) Urine Urobilinogen 2.0 (<2.0) mg/dL Ur Leukocyte Esterase Negative (Negative) Urine RBC 9 H (0-5) /hpf Urine WBC 2 (0-5) /hpf Ur Squamous Epith Cells 5 H (0-4) /hpf Urine Bacteria Many H (None) /hpf Hyaline Casts 5 H (0-2) /lpf Granular Casts 1 (0) /lpf Urine Mucus Moderate H (None) /hpf Urine Yeast (Budding) Rare H (None) /hpf /15/25 Range/Units 23:03 WBC (4.50-10.00) 10*3/uL RBC (4.10-5.20) 10*6/uL Hgb (12.0-15.0) g/dL Hct (37.2-46.3) % MCV (80.0-97.0) fL MCH (27.0-32.0) pg MCHC (32.0-37.0) g/dL Plt Count (140-440) 10*3/uL MPV (9.5-12.2) fL Immature Gran % (Auto) % Neutrophils % % Lymphocytes % % Monocytes % % Eosinophils % % Basophils % % Immature Gran # (0.00-0.04) 10*3/uL Neutrophils # (1.80-7.70) 10*3/uL Lymphocytes # (0.90-5.00) 10*3/uL Monocytes # (0.20-1.00) 10*3/uL Eosinophils # (0.04-0.35) 10*3/uL Basophils # (0.00-0.10) 10*3/uL PT (10.0-12.5) sec INR (<1.2) APTT (22.0-30.0) sec Sodium (137-145) mmol/L Potassium (3.5-5.1) mmol/L Chloride (98-107) mmol/L Carbon Dioxide (22-30) mmol/L Anion Gap mmol/L BUN (7-17) mg/dL Creatinine (0.52-1.04) mg/dL Est GFR (CKD-EPI)AfAm (>60 ml/min/1.73 sqM) Est GFR (CKD-EPI)NonAf (>60 ml/min/1.73 sqM) Glucose (74-99) mg/dL Plasma Lactic Acid David (0.7-2.0) mmol/L Calcium (8.4-10.2) mg/dL Magnesium (1.6-2.3) mg/dL Total Bilirubin (0.2-1.3) mg/dL AST (14-36) U/L ALT (4-34) U/L Alkaline Phosphatase (38-126) U/L Troponin I <0.012 (0.000-0.034) ng/mL Total Protein (6.3-8.2) g/dL Albumin (3.5-5.0) g/dL Lipase (23-300) U/L Urine Color Urine Appearance (Clear) Urine pH (5.0-8.0) Ur Specific [place] (1.001-1.035) Urine Protein (Negative) Urine Glucose (UA) (Negative) Urine Ketones (Negative) Urine Blood (Negative) Urine Nitrite (Negative) Urine Bilirubin (Negative) Urine Urobilinogen (<2.0) mg/dL Ur Leukocyte Esterase (Negative) Urine RBC (0-5) /hpf Urine WBC (0-5) /hpf Ur Squamous Epith Cells (0-4) /hpf Urine Bacteria (None) /hpf Hyaline Casts (0-2) /lpf Granular Casts (0) /lpf Urine Mucus (None) /hpf Urine Yeast (Budding) (None) /hpf Disposition Is patient prescribed a controlled substance at d/c from ED?: No Time of Disposition: 21:59 <Tay Moya - Last Filed: 04/26/25 23:05> Is patient prescribed a controlled substance at d/c from ED?: No <Bindu Paul - Last Filed: 04/27/25 00:57> Clinical Impression: Abdominal pain Disposition: HOME SELF-CARE Condition: Fair Instructions (If sedation given, give patient instructions): Gastroenteritis (ED), Abdominal Pain (ED) Additional Instructions: Increase intake of bananas, rice, applesauce, tea, toast. Ariana tea/justin for nausea. Increase intake of water and Gatorade/Pedialyte. Follow-up with PCP for any ongoing symptoms. Return to ER symptoms continue to worsen. Prescriptions: Ondansetron Odt [Zofran Odt] 4 mg PO Q8HR PRN #10 tab PRN Reason: Nausea Referrals: Silvio Wilcox DO [Primary Care Provider] - 1-2 days Dodie Mendoza MD [STAFF PHYSICIAN] - 1-2 days
[2025-04-26] MEDS: SODIUM CHLORIDE 0.9% 1,000 ML IV STA ×2 (20:49→22:27)
[2025-04-26 21:03] LABS: Basophils # (A) 0.02 10*3/uL (0.00-0.10); Basophils % (A) 0.3 %; Eosinophils % (A) 1.4 %; HCT 41.5 % (37.2-46.3); HGB 14.1 g/dL (12.0-15.0); Lymphocytes # (A) 1.17 10*3/uL (0.90-5.00); MCH 29.9 pg (27.0-32.0); MCV 87.9 fL (80.0-97.0); Mean Platelet Volume 9.7 fL (9.5-12.2); Monocytes # (A) 0.46 10*3/uL (0.20-1.00); Monocytes % (A) 6.3 %; Neutrophils # (A) 5.53 10*3/uL (1.80-7.70); Neutrophils % (A) 75.7 %; Platelet Count 172 10*3/uL (140-440); RBC 4.72 10*6/uL (4.10-5.20); RDW 12.9 % (11.5-14.5)
[2025-04-26 21:07] LABS: INR 0.9 (<1.2); Partial Thromboplastin Time 22.7 sec (22.0-30.0); Prothrombin Time 10.3 sec (10.0-12.5)
[2025-04-26 21:09] LABS: ALT 26 U/L (4-34); AST 57 U/L (14-36); African American GFR (CKD) 59 (>60 ml/min/1.73 sqM); Albumin 3.8 g/dL (3.5-5.0); Alkaline Phosphatase 53 U/L (38-126); Anion Gap 6 mmol/L; Blood Urea Nitrogen 19 mg/dL (7-17); Carbon Dioxide 26 mmol/L (22-30); Chloride 107 mmol/L (98-107); Glucose 100 mg/dL (74-99); Lipase 285 U/L (23-300); Magnesium 2.1 mg/dL (1.6-2.3); Non-African American GFR(CKD) 51 (>60 ml/min/1.73 sqM); Sodium 139 mmol/L (137-145); Total Bilirubin 0.5 mg/dL (0.2-1.3)
[2025-04-26 21:44] LABS: Appearance,Urine Cloudy (Clear); Bacteria,Urine Many /hpf; Bilirubin,Urine Negative (Negative); Blood,Urine Moderate (Negative); Budding Yeast,Urine Rare /hpf; Color,Urine Yellow; Glucose,Urine (UA) Negative (Negative); Granular Casts,Urine 1 /lpf (0); Hyaline Casts,Urine 5 /lpf (0-2); Ketones,Urine Negative (Negative); Leukocyte Esterase,Urine Negative (Negative); Mucus,Urine Moderate /hpf; Nitrite,Urine Negative (Negative); PH, Urine 5.5 (5.0-8.0); Protein,Urine Negative (Negative); RBC,Urine 9 /hpf (0-5); Specific Gravity,Urine 1.028 (1.001-1.035); Squamous Epithelial Cell,Urine 5 /hpf (0-4); WBC,Urine 2 /hpf (0-5)
--- NOTE | 2025-04-26 21:46 | CT ---
EXAMINATION TYPE: CT abdomen pelvis w con DATE OF EXAM: 04/26/2025 9:37 PM COMPARISON: None CLINICAL INDICATION: Female, 59 years old with history of Sudden onset epigastric pain; Epigastric pa in and vomiting. Hx of cholecystectomy and lap band with last adjustment in March TECHNIQUE: Axial CT abdomen pelvis w con;Sagittal and coronal reformats were created on a separate w orkstation. Contrast used:80ml mL of Isovue 370 with IV Contrast, (none if empty) Oral contrast used: without Oral Contrast (none if empty) CT DLP: 1112.8 mGycm, Automated exposure control for dose reduction was used. FINDINGS: LOWER CHEST: Unremarkable ABDOMEN LIVER: Unremarkable GALLBLADDER AND BILE DUCTS: The gallbladder is surgically absent. PANCREAS: Unremarkable. SPLEEN: Unremarkable. ADRENAL GLANDS: Unremarkable. KIDNEYS AND URETERS: No evidence of hydronephrosis or obstructing renal calculus. The ureters are unr emarkable. PELVIS BLADDER: No evidence for wall thickening or mass given limitations of exam. REPRODUCTIVE: The uterus is surgically absent. ABDOMEN & PELVIS STOMACH AND BOWEL: No evidence of bowel obstruction. Gastric lap band is present and in appropriate p osition. Small hiatal hernia. PERITONEUM/RETROPERITONEUM: No evidence of pneumoperitoneum or free fluid. VASCULATURE: Mild atherosclerotic calcifications are present throughout the abdominal aorta and its b ranches. No evidence of aortic aneurysm. MUSCULOSKELETAL: No acute osseous abnormalities. Mild disc degeneration changes are present throughou t the thoracolumbar spine. LYMPH NODES: No gross evidence for lymphadenopathy. SOFT TISSUE/ABDOMINAL WALL: epigastric fat-containing hernia measuring up to 2.9 cm at the opening IMPRESSION: 1. No evidence for acute abdominal process. 2. Gastric lap band appears in appropriate position. 3. Poststernotomy changes. 4. The appendix is normal. 5. No obstructive uropathy or renal calculus. [facility], , 04/26/2025 9:43 PM
[2025-04-26] MEDS: ONDANSETRON 4 MG ODT STARTER PACK 2 TAB BTL PO STA (22:20)
[2025-04-27 01:17] VITALS: BP 85/53; PULSE 62
--- NOTE | 2025-04-27 03:26 | XR ---
EXAM: XR Chest, 2 Views CLINICAL HISTORY: ITS.REASON XR Reason: Epigastric pain TECHNIQUE: Frontal and lateral views of the chest. COMPARISON: No relevant prior studies available. FINDINGS: Lungs: No consolidation or mass. Pleural space: No effusion. Heart: No cardiomegaly. Bones/joints: No acute findings. IMPRESSION: No acute cardiopulmonary process.
== END 2025-04-27 01:07 | disposition home or self-care (01) ==
LOC: EC 19:48
DX: R10.13 Epigastric pain (principal); F17.200 Nicotine dependence, unspecified, uncomplicated; Z88.5 Allergy status to narcotic agent
CPT/HCPCS: 36415; 93005; 80053; 83605; 83690; 83735; 84484; 85025; 85610; 85730; 81001; 71046; 74177; 99285; 96360; 96361 ×2; S0119; Q9967

== ENCOUNTER → 2025-05-18 | Outpatient (CLI) | payer BC ==
[2025-05-18 13:18] VITALS: BP 100/76; PULSE 58; TEMP 97.5; BMI 29.6
== END ==
LOC: BARWHC3 09:27
PROVIDERS: ATTEND Surgery
DX: E66.01 Morbid (severe) obesity due to excess calories (principal); Z68.29 Body mass index [BMI] 29.0-29.9, adult; Z88.5 Allergy status to narcotic agent
CPT/HCPCS: 99211

== ENCOUNTER → 2025-05-27 | Outpatient (CLI) | payer BC ==
--- NOTE | 2025-05-27 10:29 | FL ---
EXAMINATION TYPE: FL barium swallow DATE OF EXAM: 05/27/2025 LAP BANDING LIMITED ESOPHAGRAM: CLINICAL HISTORY: Dysphagia TECHNIQUE: Limited esophagram is performed utilizing 2-3 oz of barium. COMPARISON: None. FINDINGS: Pre-procedure research program manager image shows lap band in satisfactory position in proximal stomach ju st below the gastroesophageal junction. The patient then drank oral contrast. There is good flow of c ontrast along the course of the esophagus. There is good flow of contrast along the course of the la p band, there is no evidence of contrast extravasation to suggest leak. There is no significant mae gerson prolapse appreciated. IMPRESSION: No evidence of prolapse or significant obstruction. [facility], , 05/27/2025 10:26 AM
== END | disposition home or self-care (01) ==
LOC: RADFLMAIN 08:15
PROVIDERS: ATTEND Surgery
DX: R13.10 Dysphagia, unspecified (principal)
CPT/HCPCS: 74220

== ENCOUNTER 2025-06-01 12:24 | Day surgery (SDC) | payer BC ==
[2025-06-01] MEDS: IV FLUID CONTINUATION 1,000 ML IV ONE (13:20)
[2025-06-01 13:35] LABS: Glucose,Whole Blood 92 mg/dL (70-110)
[2025-06-01 13:37] VITALS: RESP 16; TEMP 97.2
[2025-06-01] MEDS: LACTATED RINGERS 1,000 ML IV SCH (13:39)
[2025-06-01] MEDS ORDERED: PROPOFOL 10 MG/ML 20 ML VIAL IV ONE (14:02)
--- NOTE | 2025-06-01 14:29 | P.GSHP ---
History of Present Illness H&P Date: 06/01/25 Chief Complaint: Dysphagia Is a 59-year-old female who has complaints of dysphagia. Patient had a previous lap band performed. Past Medical History Past Medical History: GERD/Reflux, Hyperlipidemia, Osteoarthritis (OA) Additional Past Medical History / Comment(s): hypoglycemia episodes. Chronic back pain, 4 bulging discs, bone on bone to tailbone, sciatica jessy. hiatal hernia.vertigo, HR and BP run low History of Any Multi-Drug Resistant Organisms: None Reported Past Surgical History: Bariatric Surgery, Cholecystectomy, Orthopedic Surgery Additional Past Surgical History / Comment(s): lap band. carpal tunnel bilat hands. bilateral thumbs trigger release, Pain clinic procedures-[facility], colonoscopy, Past Anesthesia/Blood Transfusion Reactions: No Reported Reaction Additional Past Anesthesia/Blood Transfusion Reaction / Comment(s): HR drops low with anesthesia, difficult to wake. Smoking Status: Current every day smoker - Past Family History Father Family Medical History: Hypertension Additional Family Medical History / Comment(s): Malignant Melonoma Mother Family Medical History: Coronary Artery Disease (CAD) Additional Family Medical History / Comment(s): 7 cardiac stents Medications and Allergies Home Medications Medication Instructions Recorded Confirmed Type Rosuvastatin [Crestor] 20 mg PO HS 05/30/21 06/01/25 History Cholecalciferol (Vitamin D3) 1 cap PO DAILY 03/23/25 06/01/25 History [Vitamin D3 (125 MCG = 5,000 IU)] Citalopram Hydrobromide 20 mg PO HS 05/28/25 06/01/25 History [Citalopram HBr] Allergies Allergy/AdvReac Type Severity Reaction Status Date / Time codeine Allergy Rash/Hives Verified 06/01/25 13:22 Surgical - Exam Vital Signs Temp Pulse Resp BP Pulse Ox 97.2 F L 65 16 117/80 99 06/01/25 13:15 06/01/25 13:15 06/01/25 13:15 06/01/25 13:15 06/01/25 13:15 - General well developed, well nourished, no distress - Eyes PERRL - ENT normal pinna - Neck no masses - Respiratory normal expansion - Cardiovascular Rhythm: regular - Abdomen Abdomen: soft, non tender Assessment and Plan Assessment: Dysphagia. Will perform EGD.
--- NOTE | 2025-06-01 14:30 | P.OP ---
Date of Procedure: 06/01/25 Preoperative Diagnosis: Dysphagia Postoperative Diagnosis: Antral gastritis Procedure(s) Performed: EGD Anesthesia: MAC Surgeon: Reynold Reyes Pathology: other (Antrum) Condition: stable Disposition: PACU Description of Procedure: The patient was placed on the endoscopy table in the lateral position. She received IV sedation. The Gastroflux oropharynx passed in the esophagus into the stomach. Scope was placed through the pylorus. The 1st and 2nd portion of the duodenum appeared normal. Scope was Ruback the antrum was appeared mildly Flaim. A biopsy was performed. The scope was then retroflexed remainder of the stomach appeared normal. The patient had previously placed Lap-Band. This this was without evidence of inflammation or erosion. The GE junction was at 40 cm. The distal esophagus appeared normal. The proximal esophagus provokers withdrawn patient.
[2025-06-01 14:51] VITALS: BP 115/67; PULSE 59
== END 2025-06-01 15:06 | disposition home or self-care (01) ==
LOC: ORWHC2ENDO 12:24
PROVIDERS: ATTEND Surgery
DX: K29.70 Gastritis, unspecified, without bleeding (principal); K21.9 Gastro-esophageal reflux disease without esophagitis; K44.9 Diaphragmatic hernia without obstruction or gangrene; E78.5 Hyperlipidemia, unspecified; G89.29 Other chronic pain; F32.A Depression, unspecified; R42 Dizziness and giddiness; F17.200 Nicotine dependence, unspecified, uncomplicated; Z79.899 Other long term (current) drug therapy; Z98.84 Bariatric surgery status; Z88.5 Allergy status to narcotic agent
CPT/HCPCS: 88305; 43239; J2704

== ENCOUNTER → 2025-06-08 | Outpatient (CLI) | payer BC ==
[2025-06-08 10:03] VITALS: BP 124/84; PULSE 64; RESP 16; TEMP 97.7; BMI 29.6
--- NOTE | 2025-06-08 10:16 | P.HPBAR ---
Bariatric H&P - History & Physicial H&P Date: 06/08/25 History & Physicial: Visit/CC: F/U EGD Patient initial contact: Initial weight: Initial weight in pounds: Height: 5 ft 5 in Initial BMI: Last weight: Current weight: 80.739 kg Current weight in pounds: 178.00 Current BMI: 29.6 [place] body weight (based on NIH guidelines): 57 kg Excess body weight loss: The patient is a 59 year-old F who presents for Bariatric Assessment. Patient is feeling hungry. She is requesting a fill. She states that her incisional hernia has increased in size. Past Medical History Past Medical History: GERD/Reflux, Hyperlipidemia Additional Past Medical History / Comment(s): hypoglycemia episodes. depression, Chronic back pain, vertigo History of Any Multi-Drug Resistant Organisms: None Reported Past Surgical History: Bariatric Surgery, Cholecystectomy, Orthopedic Surgery Additional Past Surgical History / Comment(s): lap band. carpal tunnel bilat hands. bilateral thumbs trigger release, Pain clinic procedures-[facility] Past Anesthesia/Blood Transfusion Reactions: No Reported Reaction Additional Past Anesthesia/Blood Transfusion Reaction / Comm: HR drops low with anesthesia, difficult to wake. Smoking Status: Current every day smoker - Past Family History Father Family Medical History: Hypertension Additional Family Medical History / Comment(s): Malignant Melonoma Mother Family Medical History: Coronary Artery Disease (CAD) Additional Family Medical History / Comment(s): 7 cardiac stents Surgical - Exam Vital Signs Temp Pulse Resp BP 97.7 F 64 16 124/84 06/08/25 09:43 06/08/25 09:43 06/08/25 09:43 06/08/25 09:43 - General well developed, well nourished, no distress - Eyes PERRL - ENT normal pinna - Neck no masses - Respiratory normal expansion - Cardiovascular Rhythm: regular - Abdomen 10 cm incisional hernia located near the epigastric port site Abdomen: soft, non tender Bariatric Assessment & Plan Plan: Patient's Lap-Band was adjusted. She had 0.3 cc added to the band. She currently is 2.8 cc in the band. She will be scheduled laparoscopic robotic assisted repair for repair of incisional hernia next month. Bariatric Checklist Checklist: Plan: Checklist: EGD: 1. Hiatal hernia: 2. H. Pylori: HgbA1c: Vitamin D: Smoking: Primary care physician referral: Dr. Neal Rollins ([facility]) Psychiatry clearance: Cardiology clearance: Sleep study: Diet journal: VTE risk score: VTE risk level: Rehab needs at discharge:
[2025-06-08 15:17] LABS: Basophils # (A) 0.03 X 10*3/uL (0.00-0.10); Basophils % (A) 0.5 %; Eosinophils # (A) 0.10 X 10*3/uL (0.04-0.35); Eosinophils % (A) 1.7 %; HCT 43.3 % (37.2-46.3); HGB 14.0 g/dL (12.0-15.0); Immature Grans, Automated 0.30 %; Lymphocytes # (A) 2.35 X 10*3/uL (0.90-5.00); Lymphocytes % (A) 39.1 %; MCH 28.6 pg (27.0-32.0); MCHC 32.3 g/dL (32.0-37.0); MCV 88.5 FL (80.0-97.0); Monocytes # (A) 0.44 X 10*3/uL (0.20-1.00); Monocytes % (A) 7.3 %; NRBC Per 100 WBC 0 X 10*3/uL (0.00-0.01); Neutrophils # (A) 3.07 X 10*3/uL (1.80-7.70); Neutrophils % (A) 51.1 %; Platelet Count 172 X 10*3/uL (140-440); RBC 4.89 X 10*6/uL (4.10-5.20); RDW 12.7 % (11.5-14.5); WBC 6.01 X 10*3/uL (4.50-10.00)
[2025-06-08 15:52] LABS: ALT 12 U/L (8-44); AST 18 U/L (13-35); Albumin 4.3 g/dL (3.8-4.9); Albumin/Globulin Ratio 2.05 Ratio (1.60-3.17); Alkaline Phosphatase 55 U/L (41-126); Anion Gap 10.30 mmol/L (4.00-12.00); BUN/Creat Ratio 19.67 Ratio (12.00-20.00); Blood Urea Nitrogen 23.6 mg/dL (9.0-27.0); Calcium 9.2 mg/dL (8.7-10.3); Carbon Dioxide 26.7 mmol/L (21.6-31.8); Chloride 101 mmol/L (96-109); Globulin 2.1 g/dL (1.6-3.3); Glucose 97 mg/dL (70-110); Potassium 4.1 mmol/L (3.5-5.5); Sodium 138 mmol/L (135-145); Total Protein 6.4 g/dL (6.2-8.2)
== END ==
LOC: BARWHC3 09:31
PROVIDERS: ATTEND Surgery
DX: Z01.818 Encounter for other preprocedural examination (principal); E66.01 Morbid (severe) obesity due to excess calories; K43.2 Incisional hernia without obstruction or gangrene; Z88.5 Allergy status to narcotic agent; Z68.29 Body mass index [BMI] 29.0-29.9, adult
CPT/HCPCS: 43999; 80053; 85025